=== PATIENT | female | born 1965 | race Caucasian/White ===

== ENCOUNTER → 2016-06-06 | Outpatient (CLI) | payer BC | LOC: EMI 14:46 | DX: H91.8X3 Other specified hearing loss, bilateral (principal); R06.09 Other forms of dyspnea; R90.89 Other abnormal findings on diagnostic imaging of central nervous system | CPT/HCPCS: 70553; A9577; J7050 ==

== ENCOUNTER 2021-05-19 09:22 | Inpatient (IN) | payer OTHER ==
[~2021-05-19] VITALS: Ht 170.2 cm; Wt 59.0 kg
[2021-05-19 10:15] LABS: RED BLOOD COUNT 4.43 M/UL (4.00-5.10)
[2021-05-19 10:46] LABS: BUN/CREATININE RATIO 12 (0-10)
[2021-05-19] MEDS ORDERED: D3-501250 MCG PO (13:09)
[2021-05-19] MEDS ORDERED: MACROBID 100 M100 M1 PO (13:10)
--- NOTE | 2021-05-19 13:35 | NUR ---
NEURO CHECK NEGATIVE SHE IS FULLY ALERT AND ORIENTED, NO DEFICITS/PARATHESIAS.
[2021-05-19 15:53] LABS: BORDETELLA PARAPERTUSSIS Not Detected (Not Detectd); BORDETELLA PERTUSSIS Not Detected (Not Detectd); CHLAMYDIA PNEUMONIAE Not Detected (Not Detectd); CORONAVIRUS HKU1 Not Detected (Not Detectd); CORONAVIRUS NL63 Not Detected (Not Detectd); CORONAVIRUS OC43 Not Detected (Not Detectd); CORONOAVIRUS 229E Not Detected (Not Detectd); HUMAN METAPNEUMOVIRUS Not Detected (Not Detectd); HUMAN RHINOVIRUS/ENTEROVIRUS Not Detected (Not Detectd); INFLUENZA A Not Detected (Not Detectd); INFLUENZA B Not Detected (Not Detectd); MYCOPLASMA PNEUMONIAE Not Detected (Not Detectd); PARAINFLUENZA VIRUS 1 Not Detected (Not Detectd); PARAINFLUENZA VIRUS 2 Not Detected (Not Detectd); PARAINFLUENZA VIRUS 3 Not Detected (Not Detectd); PARAINFLUENZA VIRUS 4 Not Detected (Not Detectd); RESPIRATORY SYNCYTIAL VIRUS Not Detected (Not Detectd)
[2021-05-19 17:09] LABS: SARS-CoV-2 NOT DETECTED (Not Detectd)
[2021-05-20 03:15] LABS: HEMOGLOBIN 12.6 gm/dl (12.3-15.3); RED BLOOD COUNT 3.79 M/UL (4.00-5.10); WHITE BLOOD COUNT 11.3 K/UL (4.5-11.0)
[2021-05-20 03:46] LABS: BUN/CREATININE RATIO 16 (0-10)
[2021-05-21 08:18] LABS: HEMOGLOBIN 12.8 gm/dl (12.3-15.3); RED BLOOD COUNT 3.81 M/UL (4.00-5.10)
[2021-05-21 08:19] LABS: WHITE BLOOD COUNT 22.8 K/UL (4.5-11.0)
[2021-05-21 08:40] LABS: BUN/CREATININE RATIO 9 (0-10)
[2021-05-22 05:20] LABS: RED BLOOD COUNT 3.66 M/UL (4.00-5.10); WHITE BLOOD COUNT 19.4 K/UL (4.5-11.0)
[2021-05-22 05:40] LABS: BUN/CREATININE RATIO 7 (0-10)
[2021-05-22] MEDS ORDERED: OMNICEF 300 MG300 MG PO (13:57)
[2021-05-22] MEDS ORDERED: IPRAT-ALBUT 0.5-3 ML NEB (13:57)
[2021-05-22] MEDS ORDERED: ZITHROMAX250 MG PO (13:57)
[2021-05-22] MEDS ORDERED: NICOTINE PATCH1 EAC1 TOP (13:57)
[2021-05-22] MEDS ORDERED: CODEINE-GUAIFE473 ML PO (13:58)
== END 2021-05-22 16:27 | disposition home or self-care (01) | DRG 871 ==
LOC: ER1 09:22 → CDU 11:36 → M/S 13:09
PROVIDERS: Emergency Medicine; Physician Assistant; Physician Assistant Medical; ADMIT Internal Medicine
DX: A41.9 Sepsis, unspecified organism (principal); J18.9 Pneumonia, unspecified organism; J96.01 Acute respiratory failure with hypoxia; N39.0 Urinary tract infection, site not specified; Z20.822 Contact with and (suspected) exposure to COVID-19; F17.210 Nicotine dependence, cigarettes, uncomplicated; E87.6 Hypokalemia; Z90.49 Acquired absence of other specified parts of digestive tract; Z80.9 Family history of malignant neoplasm, unspecified
CPT/HCPCS: 0240U; 36415; 36600; 71045; 71046; 80053; 81001; 82550; 82553; 82803; 83605; 83880; 84484; 85025; 85027; 86140; 87040; 87070; 87081; 87086; 87205; 87633; 93005; 94640; 94664; 94760; 96374; 99285; J0456; J0696; J1650; J2405; J7070

== ENCOUNTER → 2021-06-01 | Outpatient (CLI) | payer OTHER ==
[~2021-06-01] MED LIST: CODEINE-GUAIFE473 ML PO; D3-501250 MCG PO; IPRAT-ALBUT 0.5-3 ML NEB; MACROBID 100 M100 M1 PO; NICOTINE PATCH1 EAC1 TOP; OMNICEF 300 MG300 MG PO; ZITHROMAX250 MG PO
== END ==
LOC: EXRD 08:22
DX: Z13.820 Encounter for screening for osteoporosis (principal); Z78.0 Asymptomatic menopausal state; M85.88 Other specified disorders of bone density and structure, other site
CPT/HCPCS: 77080

== ENCOUNTER → 2021-07-27 | Outpatient (CLI) | payer OTHER | LOC: EXRD 09:55 | DX: Z87.01 Personal history of pneumonia (recurrent) (principal) | CPT/HCPCS: 71046 ==